=== PATIENT | male | born 1970 | race Caucasian/White ===

== ENCOUNTER 2019-07-04 01:36 | Emergency (ER) | payer OTHER ==
[~2019-07-04] VITALS: Ht 177.8 cm; Wt 101.2 kg
--- NOTE | 2019-07-04 02:57 | NUR ---
Patient resting comfortably, back from triage and changed into hospital gown. Provided with warm blanket, assessed by mid level provider, will return with ordered antimicrobials.
[2019-07-04] MEDS ORDERED: CEPHALEXIN 500 MG CAPSULE PO ONE (03:00)
[2019-07-04] MEDS ORDERED: SULFAMETH./TRIMETHOPRIM DS 800MG/160MG TABLET PO ONE (03:00)
[2019-07-04] MEDS ORDERED: SULFAMETH./TRIMETHOPRIM DS 800MG/160MG TABLET ONE (03:01)
[2019-07-04] MEDS ORDERED: CEPHALEXIN 500 MG CAPSULE ONE (03:01)
[2019-07-04 03:08] VITALS: BP 150/93
== END 2019-07-04 04:21 | disposition home or self-care (01) ==
LOC: ED 04:10
DX: L02.01 Cutaneous abscess of face (principal)
CPT/HCPCS: 99283

== ENCOUNTER 2019-07-05 18:51 | Emergency (ER) | payer OTHER ==
[~2019-07-05] VITALS: Ht 177.8 cm; Wt 100.1 kg
[2019-07-05 19:46] VITALS: BP 176/125
[2019-07-05] MEDS ORDERED: SODIUM CHLORIDE FLUSH 10ML SYR IVF ONE (20:00)
[2019-07-05] MEDS ORDERED: SODIUM CHLORIDE 0.9% 1,000ML IVBOLUS ONE (20:00)
[2019-07-05] MEDS ORDERED: ONDANSETRON 2MG/ML, 2ML ONE (20:49)
[2019-07-05] MEDS ORDERED: MORPHINE SULFATE 4 MG/ML, 1ML ONE (20:49)
--- NOTE | 2019-07-05 20:51 | NUR ---
need iv for ct.
--- NOTE | 2019-07-05 20:59 | NUR ---
PT MEDICATED FOR PAIN AT THIS TIME.
[2019-07-05] MEDS ORDERED: MORPHINE SULFATE 4 MG/ML, 1ML IVPush PRN (21:00)
[2019-07-05] MEDS ORDERED: ONDANSETRON 2MG/ML, 2ML IVPush ONE (21:00)
--- NOTE | 2019-07-05 21:00 | NUR ---
PT TO CT VIA [facility] AT THIS TIME.
[2019-07-05 21:05] LABS: MEAN CORPUSCULAR HEMOGLOBIN 28.4 pg (27.5-34.5); MEAN CORPUSCULAR HGB CONC 32.7 g/dL (33.2-36.2); MEAN CORPUSCULAR VOLUME 86.8 fL (81-97); MEAN PLATELET VOLUME 7.8 fL (7.4-10.4); PLATELET COUNT 280 x10^3/uL (130-400); RED BLOOD COUNT 5.38 x10^6/uL (4.38-5.82); RED CELL DISTRIBUTION WIDTH 13.6 % (9.4-14.8)
[2019-07-05 21:11] LABS: ALANINE AMINOTRANSFERASE 41 U/L (12-78); ALBUMIN 4.2 g/dL (3.4-5.0); ANION GAP 7 mmol/L (5-15); CALCIUM 9.4 mg/dL (8.5-10.1); CHLORIDE 105 mmol/L (98-107)
[2019-07-05 21:13] LABS: ALKALINE PHOSPHATASE 71 U/L (45-117); BILIRUBIN,TOTAL 0.8 mg/dL (0.2-1.0); CREATININE 0.98 mg/dL (0.7-1.3); TOTAL PROTEIN 8.7 g/dL (6.4-8.2)
[2019-07-05] MEDS ORDERED: CLINDAMYCIN PMX 900MG/50ML 50 ML ONE (21:15)
[2019-07-05] MEDS ORDERED: OMNIPAQUE 350 MG/ML, 75ML BOTTLE ONE (21:16)
[2019-07-05 21:23] LABS: BASOPHILS % (AUTO) 1 % (0-1); EOSINOPHILS # (AUTO) 0.22 x10^3/uL (0-0.4); EOSINOPHILS % (AUTO) 1 % (1-7); LYMPHOCYTES # (AUTO) 1.78 x10^3/uL (1-3.4); LYMPHOCYTES % (AUTO) 12 % (22-44); MD SCAN; MONOCYTES # (AUTO) 1.24 x10^3/uL (0.2-0.8); MONOCYTES % (AUTO) 8 % (2-9); NEUTROPHILS # (AUTO) 12.04 x10^3/uL (1.8-6.8); NEUTROPHILS % (AUTO) 78 % (42-75)
[2019-07-05] MEDS ORDERED: CLINDAMYCIN PMX 900MG/50ML 50 ML IV ONE (21:30)
[2019-07-05] MEDS ORDERED: BUPIVACAINE 0.25% INFIL ONE (21:30)
[2019-07-05] MEDS ORDERED: BUPIVACAINE 0.25% ONE (21:33)
[2019-07-05] MEDS ORDERED: LIDOCAINE-MPF 1%, 5ML ONE (22:07)
[2019-07-05] MEDS ORDERED: LIDOCAINE 1%-EPI 1:100K, 20ML ONE (22:24)
--- NOTE | 2019-07-05 23:21 | NUR ---
PT D/C WITH D/C SUMMARY AND SCRIPTS. ALL QUESTIONS ANSWERED. PT AMBULATES TO REGISTRATION DESK WITH STEADY GAIT AND VERALIZES UNDERSTANDING OF HOME CARE AND F/U INSTRUCTIONS. PT DENIES ANY OTHER NEEDS PERTAINING TO THIS VISIT. PT VERBALIZES NEED TO F/U AT [facility] ED IN 48 HOURS FROM NOW.
== END 2019-07-05 23:24 | disposition home or self-care (01) ==
LOC: ED 21:56
DX: K13.0 Diseases of lips (principal)
CPT/HCPCS: 10060; 36415; 70487; 80053; 83605; 84145; 85025; 87040; 87070; 87077; 87186; 87205; 96365; 96375; 99284; J2270; J2405; J7030; Q9967